=== PATIENT | male | born 1985 | race Caucasian/White ===

== ENCOUNTER 2022-01-03 10:19 | Emergency (ER) | payer SELFPAY ==
[~2022-01-03] VITALS: Ht 185.4 cm; Wt 81.8 kg
[2022-01-03 11:04] LABS: BASO # 0.02 K/mm3 (0.02-0.10); EOS # 0.05 K/mm3 (0.04-0.40); EOS % 1.1 % (0.0-4.0); HEMATOCRIT 39.5 % (42.0-52.0); HEMOGLOBIN 13.6 g/dL (13.5-18.0); LYMPH# 0.97 K/mm3 (1.50-4.00); MEAN CELL VOLUME 90 fl (78-100); MEAN CORPUSCULAR HEMOGLOBIN 31 pg (27-31); MEAN CORPUSCULAR HGB CONC 34 g/dL (33-37); MEAN PLATELET VOLUME 9.6 fl (7.4-10.4); MONO # 0.35 K/mm3 (0.20-0.80); NEU # 3.11 K/mm3 (1.40-6.50); PLATELET COUNT 239 K/mm3 (130-400); RED BLOOD COUNT 4.38 M/mm3 (4.20-5.60); RED CELL DISTRIBUTION WIDTH 11.3 % (11.5-14.5); WHITE BLOOD COUNT 4.5 K/mm3 (4.8-10.8)
[2022-01-03 11:19] LABS: ALBUMIN 4.6 g/dL (3.5-5.0)
[2022-01-03 11:20] LABS: POTASSIUM 4.1 mmol/L (3.5-5.1)
[2022-01-03 11:21] LABS: CALCIUM 9.4 mg/dL (8.3-10.5)
[2022-01-03 11:22] LABS: TOTAL PROTEIN 6.9 g/dL (6.4-8.3)
[2022-01-03 11:24] LABS: TOTAL BILIRUBIN 0.7 mg/dL (0.2-1.2)
[2022-01-03] MEDS ORDERED: LORAZEPAM0.5 M1 PO (12:24)
[2022-01-03 12:55] VITALS: BP 116/73
== END 2022-01-03 12:45 | disposition home or self-care (01) ==
LOC: ED 10:19
PROVIDERS: Family Medicine
DX: F41.9 Anxiety disorder, unspecified (principal); G47.00 Insomnia, unspecified; Z28.310 Unvaccinated for COVID-19; Z20.822 Contact with and (suspected) exposure to COVID-19